=== PATIENT | female | born 1985 | race Caucasian/White ===

== ENCOUNTER 2022-09-14 08:22 | Outpatient (CLI) | payer BC, SELFPAY ==
[2022-09-14 09:12] LABS: Kit Draw Collected
== END 2022-09-14 08:23 | disposition home or self-care (01) ==
PROVIDERS: PCP Family Medicine; Visit Provider Family Medicine
DX: Z00.00 Encounter for general adult medical examination without abnormal findings (principal)
CPT/HCPCS: 36415

== ENCOUNTER 2024-05-25 08:03 | Outpatient (CLI) | payer BC, SELFPAY ==
--- OUTSIDE RECORDS SUMMARY | 2024-05-25 08:08 | XMS_ITS | Clinical Summary ---
Author Organization [facility] [id number] Address [address] [place] [address] Care Team Providers Care Doughmaker Name Role Phone Gabino Howard MD Primary Care Provider [phone] Allergies No known active allergies Medications No known medications Active Problems No known active problems Family History Medical History Relation Name Comments No Known Problems Father Cardiomyopathy Mother Healthy Sister Relation Name Status Comments Father Alive Mother Alive Sister Alive Social History Tobacco Use Types Packs/Day Years Used Date Smoking Tobacco: Never Alcohol Use Standard Drinks/Week Comments Yes 0 (1 standard drink = 0.6 oz pur e alcohol) rarely Comments Unknown Sex and Gender Information Value Date Recorded Sex Assigned at Not on file Legal Sex Female 3:24 PM CDT Gender Identity Not on file Sexual Orientation Not on file Last Filed Vital Signs Vital Sign Reading Time Taken Comments Blood Pressure 110/60 08/29/2018 8:52 AM CDT Pulse - - Temperature - - Respiratory Rate - - Oxygen Saturation - - Inhaled Oxygen Concentration - - Weight 54.4 kg (120 lb) 08/29/2018 8:52 AM CDT Height 157.5 cm (5' 2 ) 08/29/2018 8:52 AM CDT Body Mass Index 21.95 08/29/2018 8:52 AM CDT Plan of Treatment Health Maintenance Due Date Last Done Comments DTAP/TDAP/TD VACCINES (1 - Tdap) 04/09/2003 HEPATITIS B VACCINES (1 of 3 - 19+ 3-dose series) 04/09/2003 HPV/Cotest (21-29) 2005 PAP SMEAR 2005 CERVICAL CANCER SCREENING 2014 HPV/Cotest (30-65) 2014 PAP SMEAR 2014 INFLUENZA VACCINE (#1) 2023 BREAST CANCER SCREENING 2024 HPV VACCINES Aged Out No longer eligi ble based on patient's age to complete this topic PNEUMOCOCCAL VACCINE 0-49 YEARS Aged Out No longer eligible based on patient's age to complete this topic Insurance [facility] [employer] PPO Care Teams Doughmaker Relationship Specialty Start Date End Date Gabino Howard MD PCP - General Family Practice 08/16/18
--- OUTSIDE RECORDS SUMMARY | 2024-05-25 08:08 | XMS_ITS | Encounter Summary ---
Author Organization [facility] Care Team Providers Care Audio Visual Facilities Engineer Name Role Phone No, Physician Primary Care Provider [phone] Gabino Howard MD Primary Care Provider [phone] Encounter Details Date Type Department Care Team (Latest Contact Info) Description 08/24/2016 Orders Only [facility] CLINCONV Provider, MD Aleisha [address] [place] [address] Social History Tobacco Use Types Packs/Day Years Used Date Smoking Tobacco: Never Assessed Comments Unknown Sex and Gender Information Value Date Recorded Sex Assigned at Not on file Legal Sex Female 8:41 PM SHELL MOLDING ROLLER BLAST OPERATOR Gender Identity Not on file Sexual Orientation Not on file documented as of this encounter Plan of Treatment Not on file documented as of this encounter Procedures Procedure Name Priority Date/Time Associated Diagnosis Comments SCAN - LABS 08/24/2016 12:00 AM CDT documented in this encounter Results * SCAN - LABS (08/24/2016 12:00 AM CDT) Narrative 08/24/2016 12:00 AM CDT Ordered by an unspecified provider. Historical Provider Final Res ult documented in this encounter Visit Diagnoses Not on filedocumented in this encounter Additional Health Concerns Infection Onset Date Last Indicated Resolved Time COVID: Suspected 02/11/2021 02/11/2021 02/11/2021 1:40 PM SHELL MOLDING ROLLER BLAST OPERATOR COVID19 02/11/2021 02/11/2021 02/25/2021 3:05 AM SHELL MOLDING ROLLER BLAST OPERATOR documented as of this encounter Care Teams Audio Visual Facilities Engineer Relationship Specialty Start Date End Date No, Physician PCP - General 02/08/21 10/22/21 Gabino Howard MD PCP - General Family Medicine 10/23/21 documented as of this encounter
--- OUTSIDE RECORDS SUMMARY | 2024-05-25 08:08 | XMS_ITS | Encounter Summary ---
Author Organization [facility] Care Team Providers Care Engagement Director Name Role Phone No, Physician Primary Care Provider [phone] Gabino Howard MD Primary Care Provider [phone] Encounter Details Date Type Department Care Team (Latest Contact Info) Description 06/22/2016 Orders Only [facility] CLINCONV Provider, MD Aleisha [address] [place] [address] Social History Tobacco Use Types Packs/Day Years Used Date Smoking Tobacco: Never Assessed Comments Unknown Sex and Gender Information Value Date Recorded Sex Assigned at Not on file Legal Sex Female 8:41 PM FLEECER Gender Identity Not on file Sexual Orientation Not on file documented as of this encounter Plan of Treatment Not on file documented as of this encounter Procedures Procedure Name Priority Date/Time Associated Diagnosis Comments SCAN - LABS 06/28/2016 12:00 AM CDT documented in this encounter Results * SCAN - LABS (06/28/2016 12:00 AM CDT) Narrative 06/28/2016 12:00 AM CDT Ordered by an unspecified provider. Historical Provider Final Res ult documented in this encounter Visit Diagnoses Not on filedocumented in this encounter Additional Health Concerns Infection Onset Date Last Indicated Resolved Time COVID: Suspected 02/11/2021 02/11/2021 02/11/2021 1:40 PM FLEECER COVID19 02/11/2021 02/11/2021 02/25/2021 3:05 AM FLEECER documented as of this encounter Care Teams Engagement Director Relationship Specialty Start Date End Date No, Physician PCP - General 02/08/21 10/22/21 Gabino Howard MD PCP - General Family Medicine 10/23/21 documented as of this encounter
--- OUTSIDE RECORDS SUMMARY | 2024-05-25 08:08 | XMS_ITS | Referral Summary ---
Author Organization [id number] Address [address] [place] [id number] Care Team Providers Care Nylon Mender Name Role Phone Gabino Howard MD Primary Care Provider [phone] Allergies No known active allergies Medications valACYclovir (VALTREX) 1 gram tablet 01/19/2021 Active Active Problems No known active problems Social History Tobacco Use Types Packs/Day Years Used Date Smoking Tobacco: Never Assessed Comments Unknown Sex and Gender Information Value Date Recorded Sex Assigned at Not on file Legal Sex Female 8:41 PM RISK AND INSURANCE MANAGER Gender Identity Not on file Sexual Orientation Not on file Last Filed Vital Signs Vital Sign Reading Time Taken Comments Blood Pressure 110/60 02/11/2021 1:18 PM RISK AND INSURANCE MANAGER Pulse 86 02/11/2021 1:18 PM RISK AND INSURANCE MANAGER Temperature 36.6 C (97.9 F) 02/11/2021 1:18 PM RISK AND INSURANCE MANAGER Respiratory Rate 16 02/11/2021 1:18 PM RISK AND INSURANCE MANAGER Oxygen Saturation 99% 02/11/2021 1:18 PM RISK AND INSURANCE MANAGER Inhaled Oxygen Concentration - - Weight 59 kg (130 lb) 02/11/2021 1:18 PM RISK AND INSURANCE MANAGER Height 157.5 cm (5' 2 ) 02/11/2021 1:18 PM RISK AND INSURANCE MANAGER Body Mass Index 23.78 02/11/2021 1:18 PM RISK AND INSURANCE MANAGER Plan of Treatment Not on [place] [address] [facility] [place] [address] Care Teams Nylon Mender Relationship Specialty Start Date End Date Gabino Howard MD PCP - General Family Medicine 10/23/21
--- OUTSIDE RECORDS SUMMARY | 2024-05-25 08:08 | XMS_ITS | Clinical Summary ---
Author Organization [facility] [id number] [place] Address [address] [place] [address] Care Team Providers Care Ornamental Metalwork Designer Name Role Phone Gabino Howard MD Primary Care Provider [phone] Allergies No known active allergies Medications valACYclovir (VALTREX) 1 gram tablet 01/19/2021 Active Active Problems No known active problems Social History Tobacco Use Types Packs/Day Years Used Date Smoking Tobacco: Never Assessed Comments Unknown Sex and Gender Information Value Date Recorded Sex Assigned at Not on file Legal Sex Female 8:41 PM X RAY EQUIPMENT SERVICER Gender Identity Not on file Sexual Orientation Not on file Obstetrics History Last Filed Vital Signs Vital Sign Reading Time Taken Comments Blood Pressure 110/60 02/11/2021 1:18 PM X RAY EQUIPMENT SERVICER Pulse 86 02/11/2021 1:18 PM X RAY EQUIPMENT SERVICER Temperature 36.6 C (97.9 F) 02/11/2021 1:18 PM X RAY EQUIPMENT SERVICER Respiratory Rate 16 02/11/2021 1:18 PM X RAY EQUIPMENT SERVICER Oxygen Saturation 99% 02/11/2021 1:18 PM X RAY EQUIPMENT SERVICER Inhaled Oxygen Concentration - - Weight 59 kg (130 lb) 02/11/2021 1:18 PM X RAY EQUIPMENT SERVICER Height 157.5 cm (5' 2 ) 02/11/2021 1:18 PM X RAY EQUIPMENT SERVICER Body Mass Index 23.78 02/11/2021 1:18 PM X RAY EQUIPMENT SERVICER Plan of Treatment Not on [place] [address] [place] [address] Care Teams Ornamental Metalwork Designer Relationship Specialty Start Date End Date Gabino Howard MD PCP - General Family Medicine 10/23/21
[2024-05-25 16:26] LABS: Kit Draw Collected
== END 2024-05-25 08:04 | disposition home or self-care (01) ==
LOC: ANHGOSHLAB 08:05
PROVIDERS: PCP Family Medicine; Visit Provider Student in an Organized Health Care Education/Training Program
DX: R10.9 Unspecified abdominal pain (principal); R42 Dizziness and giddiness; R53.83 Other fatigue; Z13.220 Encounter for screening for lipoid disorders
CPT/HCPCS: 36415

== ENCOUNTER 2024-12-31 09:04 | Outpatient (CLI) | payer OTHER, SELFPAY ==
--- OUTSIDE RECORDS SUMMARY | 2024-12-31 09:52 | XMS_ITS | Clinical Summary ---
Author Organization [facility] [id number] [facility] Address [address] [place] [address] Care Team Providers Care Beam Builder Helper Name Role Phone Gabino Howard MD Primary Care Provider [phone] Allergies No known active allergies Medications No [...] 8:52 AM CDT Height 157.5 cm (5' 2) 08/29/2018 8:52 AM CDT Body Mass Index 21.95 08/29/2018 8:52 AM CDT Plan of Treatment Health Maintenance Due Date Last Done Comments DTAP/TDAP/TD VACCINES (1 - Tdap) 04/09/2003 HEPATITIS B VACCINES (1 of 3 - 19+ 3-dose series) 03/2003 HPV/Cotest (21-29) 2005 HPV VACCINES (1 - 3-dose SCDM series) 04/09/2011 CERVICAL CANCER SCREENING 2014 HPV/Cotest (30-65) 2014 PAP SMEAR 2014 BREAST CANCER SCREENING 2024 INFLUENZA VACCINE (#1) 2024 Insurance [place] [employer] PPO Care Teams Beam Builder Helper Relationship Specialty Start Date End Date Gabino Howard MD PCP - General Family Practice 08/16/18
--- OUTSIDE RECORDS SUMMARY | 2024-12-31 09:52 | XMS_ITS | Encounter Summary ---
Author Organization [facility] Care Team Providers Care Restaurant Area Director Name Role Phone No, Physician Primary Care Provider [phone] Gabino Howard MD Primary Care Provider [phone] Encounter Details Date Type Department Care Team (Latest Contact Info) Description 08/24/2016 Orders Only [facility] CLINCONV Provider, MD Aleisha [address] [place] [address] Social History Tobacco Use Types Packs/Day Years Used Date Smoking Tobacco: Never Assessed Comments Unknown Sex and Gender Information Value Date Recorded Sex Assigned at Not on file Legal Sex Female 8:41 PM INSPECTOR TECHNICIAN Gender Identity Not on file Sexual Orientation [...] COVID: Suspected 02/11/2021 02/11/2021 02/11/2021 1:40 PM INSPECTOR TECHNICIAN COVID19 02/11/2021 02/11/2021 02/25/2021 3:05 AM INSPECTOR TECHNICIAN documented as of this encounter Care Teams Restaurant Area Director Relationship Specialty Start Date End Date No, Physician PCP - General 02/08/21 10/22/21 Gabino Howard MD PCP - General Family Medicine 10/23/21 documented as of this encounter
--- OUTSIDE RECORDS SUMMARY | 2024-12-31 09:52 | XMS_ITS | Clinical Summary ---
Author Organization [facility] [id number] [facility] Address [address] [place] [address] Care Team Providers Care Track Supervisor Name Role Phone Gabino Howard MD Primary Care Provider [phone] Allergies No known active allergies Medications valACYclovir (VALTREX) 1 gram tablet 01/19/2021 Active Active Problems No known active problems Social History Tobacco Use Types Packs/Day Years Used Date Smoking Tobacco: Never Assessed Comments Unknown Sex and Gender Information Value Date Recorded Sex Assigned at Not on file Legal Sex Female 8:41 PM BRUSH CUTTER Gender Identity Not on file Sexual Orientation Not on file Last Filed Vital Signs Vital Sign Reading Time Taken Comments Blood Pressure 110/60 02/11/2021 1:18 PM BRUSH CUTTER Pulse 86 02/11/2021 1:18 PM BRUSH CUTTER Temperature 36.6 C (97.9 F) 02/11/2021 1:18 PM BRUSH CUTTER Respiratory Rate 16 02/11/2021 1:18 PM BRUSH CUTTER Oxygen Saturation 99% 02/11/2021 1:18 PM BRUSH CUTTER Inhaled Oxygen Concentration - - Weight 59 kg (130 lb) 02/11/2021 1:18 PM BRUSH CUTTER Height 157.5 cm (5' 2) 02/11/2021 1:18 PM BRUSH CUTTER Body Mass Index 23.78 02/11/2021 1:18 PM BRUSH CUTTER Plan of Treatment Not on [place] [address] [place] [address] Care Teams Track Supervisor Relationship Specialty Start Date End Date Gabino Howard MD PCP - General Family Medicine 10/23/21
--- OUTSIDE RECORDS SUMMARY | 2024-12-31 09:52 | XMS_ITS | Encounter Summary ---
Author Organization [facility] Care Team Providers Care Craft Artist Name Role Phone No, Physician Primary Care Provider [phone] Gabino Howard MD Primary Care Provider [phone] Encounter Details Date Type Department Care Team (Latest Contact Info) Description 06/22/2016 Orders Only [facility] CLINCONV Provider, MD Aleisha [address] [place] [address] Social History Tobacco Use Types Packs/Day Years Used Date Smoking Tobacco: Never Assessed Comments Unknown Sex and Gender Information Value Date Recorded Sex Assigned at Not on file Legal Sex Female 8:41 PM NIPPLE THREADER Gender Identity Not on file Sexual Orientation [...] COVID: Suspected 02/11/2021 02/11/2021 02/11/2021 1:40 PM NIPPLE THREADER COVID19 02/11/2021 02/11/2021 02/25/2021 3:05 AM NIPPLE THREADER documented as of this encounter Care Teams Craft Artist Relationship Specialty Start Date End Date No, Physician PCP - General 02/08/21 10/22/21 Gabino Howard MD PCP - General Family Medicine 10/23/21 documented as of this encounter
== END 2024-12-31 09:05 | disposition home or self-care (01) ==
PROVIDERS: PCP Family Medicine; Visit Provider Student in an Organized Health Care Education/Training Program
DX: R00.2 Palpitations (principal); R53.83 Other fatigue; F41.9 Anxiety disorder, unspecified; Z13.0 Encounter for screening for diseases of the blood and blood-forming organs and certain disorders involving the immune mechanism
CPT/HCPCS: 36415